=== PATIENT | male | born 1990 | race Two or more races ===

== ENCOUNTER 2021-04-09 10:28 | Inpatient (IN) | payer OTHER ==
[~2021-04-09] VITALS: Ht 175.3 cm; Wt 68.2 kg
[2021-04-09 11:23] LABS: COVID AG,FIA SOURCE NASOPHARYNGEAL
[2021-04-09 11:44] LABS: BASOPHILS % (AUTO) 0.7 % (0.0-2.0); EOSINOPHILS % (AUTO) 3.4 % (1.0-6.0); HEMATOCRIT 44.9 % (41-53); HEMOGLOBIN 14.4 g/dL (13.5-17.5); LYMPHOCYTES # (AUTO) 2.1 K/uL (1.0-4.8); LYMPHOCYTES % (AUTO) 30.1 % (22.0-44.0); MEAN CORPUSCULAR HEMOGLOBIN 29.4 pg (26.0-34.0); MEAN CORPUSCULAR HGB CONC 32.2 G/dL (31.0-37.0); MEAN CORPUSCULAR VOLUME 91 fL (80-100); MONOCYTES # (AUTO) 0.7 K/uL (0.1-1.0); MONOCYTES % (AUTO) 10.2 % (2.0-9.0); NEUTROPHILS # (AUTO) 3.9 K/uL (1.8-7.7); NEUTROPHILS % (AUTO) 55.6 % (40.0-70.0); PLATELET COUNT (AUTO) 209 K/uL (150-450); RED BLOOD CELL COUNT(AUTO) 4.91 MIL/uL (4.50-5.90); RED CELL DISTRIBUTION WIDTH 14.1 % (11.5-14.5)
[2021-04-09 11:56] LABS: ANION GAP 3 mmol/L (8-16); CALCIUM, TOTAL 8.8 mg/dL (8.8-10.5); CARBON DIOXIDE 30 mmol/L (22-29); CHLORIDE 106 mmol/L (98-107); CREATININE 1.03 mg/dL (0.60-1.30); GLOMERULAR FILTR. RATE CALC > 60 mL/min (>60); GLUCOSE,RANDOM 97 mg/dL (70-110); POTASSIUM 3.7 mmol/L (3.5-5.1); SODIUM SERUM 139 mmol/L (136-145); UREA NITROGEN, BLOOD 13 mg/dL (7-18)
[2021-04-09 12:00] LABS: ALANINE AMINOTRANSFERASE 39 U/L (12-78); ALBUMIN 4.2 g/dL (3.4-5.0); ALKALINE PHOSPHATASE 69 U/L (46-116); ASPARTATE AMINOTRANSFERASE 31 U/L (15-37); BILIRUBIN,TOTAL 0.7 mg/dL (0.1-1.0); TOTAL PROTEIN, SERUM 6.7 g/dL (6.4-8.2)
[2021-04-09] MEDS ORDERED: ONDANSETRON HCL 4 MG/2 ML VIAL IVP PRN ×2 (12:30→13:00)
[2021-04-09] MEDS ORDERED: 0.9% SODIUM CHLORIDE 10 ML SYRINGE IVP PRN ×2 (12:30→13:00)
[2021-04-09] MEDS ORDERED: ACETAMINOPHEN 325 MG TABLET PO PRN ×2 (12:30→13:00)
[2021-04-09] MEDS ORDERED: ALBUTEROL SULFATE 2.5 MG/0.5 ML NEB SOLUTION NEB PRN ×2 (13:00→13:15)
[2021-04-09] MEDS ORDERED: DOCUSATE SODIUM 100 MG/10 ML LIQUID UDCUP PO PRN (13:00)
[2021-04-09] MEDS ORDERED: IPRATROPIUM BROMIDE 0.5 MG/2.5 ML NEB SOLUTION NEB PRN (13:00)
[2021-04-09 13:06] LABS: AMPHET/METH SCREEN,URINE NEGATIVE (NEGATIVE); BARBITURATE SCREEN, URINE NEGATIVE (NEGATIVE); BENZODIAZEPINES SCREEN,URINE NEGATIVE (NEGATIVE); CANNABINOID SCREEN,URINE NEGATIVE (NEGATIVE); COCAINE SCREEN,URINE NEGATIVE (NEGATIVE); METHADONE SCREEN, URINE NEGATIVE (NEGATIVE); OPIATE SCREEN,URINE NEGATIVE (NEGATIVE)
[2021-04-09 13:08] LABS: PHENCYCLIDINE SCREEN,URINE NEGATIVE (NEGATIVE)
[2021-04-09] MEDS ORDERED: DOCUSATE SODIUM 100 MG CAPSULE PO PRN (13:15)
[2021-04-09 13:55] VITALS: BP 135/66
[2021-04-09 20:19] VITALS: BP 128/59
[2021-04-10] MEDS ORDERED: HALOPERIDOL LACTATE 5 MG/ML VIAL IM ONE (04:15)
[2021-04-10] MEDS ORDERED: DiphenhydrAMINE HCL 50 MG/ML VIAL IM ONE (04:15)
[2021-04-10 05:49] LABS: BASOPHILS % (AUTO) 0.7 % (0.0-2.0); EOSINOPHILS % (AUTO) 4.5 % (1.0-6.0); HEMATOCRIT 43.7 % (41-53); HEMOGLOBIN 14.4 g/dL (13.5-17.5); LYMPHOCYTES # (AUTO) 2.8 K/uL (1.0-4.8); LYMPHOCYTES % (AUTO) 35.8 % (22.0-44.0); MEAN CORPUSCULAR HEMOGLOBIN 29.8 pg (26.0-34.0); MEAN CORPUSCULAR HGB CONC 33.1 G/dL (31.0-37.0); MEAN CORPUSCULAR VOLUME 90 fL (80-100); MONOCYTES # (AUTO) 0.8 K/uL (0.1-1.0); MONOCYTES % (AUTO) 9.6 % (2.0-9.0); NEUTROPHILS # (AUTO) 3.9 K/uL (1.8-7.7); NEUTROPHILS % (AUTO) 49.4 % (40.0-70.0); PLATELET COUNT (AUTO) 216 K/uL (150-450); RED BLOOD CELL COUNT(AUTO) 4.85 MIL/uL (4.50-5.90); RED CELL DISTRIBUTION WIDTH 13.8 % (11.5-14.5)
[2021-04-10 07:11] LABS: ALANINE AMINOTRANSFERASE 36 U/L (12-78); ALBUMIN 3.5 g/dL (3.4-5.0); ALKALINE PHOSPHATASE 70 U/L (46-116); ANION GAP 6 mmol/L (8-16); ASPARTATE AMINOTRANSFERASE 22 U/L (15-37); BILIRUBIN,TOTAL 0.7 mg/dL (0.1-1.0); CALCIUM, TOTAL 8.7 mg/dL (8.8-10.5); CARBON DIOXIDE 27 mmol/L (22-29); CHLORIDE 103 mmol/L (98-107); CREATININE 1.03 mg/dL (0.60-1.30); GLOMERULAR FILTR. RATE CALC > 60 mL/min (>60); GLUCOSE,RANDOM 104 mg/dL (70-110); POTASSIUM 3.8 mmol/L (3.5-5.1); SODIUM SERUM 136 mmol/L (136-145); TOTAL PROTEIN, SERUM 6.2 g/dL (6.4-8.2); UREA NITROGEN, BLOOD 11 mg/dL (7-18)
[2021-04-10 07:55] VITALS: BP 111/58
[2021-04-10] MEDS ORDERED: HALOPERIDOL 5 MG TABLET PO PRN (11:00)
[2021-04-10] MEDS ORDERED: LORazepam 2 MG TABLET PO PRN (11:00)
[2021-04-10] MEDS: RisperiDONE 2 MG TABLET PO SCH ×2 (11:43→19:59)
[2021-04-10] MEDS: DIVALPROEX SODIUM 500 MG ER TABLET PO SCH ×2 (11:43→19:59)
[2021-04-10] MEDS: TraZODone HCL 100 MG TABLET PO SCH (19:59)
[2021-04-10 20:10] VITALS: BP 124/61
[2021-04-11 07:23] VITALS: BP 108/58
[2021-04-11] MEDS: DIVALPROEX SODIUM 500 MG ER TABLET PO SCH ×2 (08:03→20:12)
[2021-04-11] MEDS: RisperiDONE 2 MG TABLET PO SCH ×2 (08:03→20:12)
[2021-04-11 19:50] VITALS: BP 127/67
[2021-04-11] MEDS: TraZODone HCL 100 MG TABLET PO SCH (20:12)
[2021-04-11 22:41] VITALS: BP 119/60
[2021-04-12 00:43] VITALS: BP 119/60
[2021-04-12 05:06] VITALS: BP 119/58
[2021-04-12 08:07] VITALS: BP 128/76
[2021-04-12] MEDS: RisperiDONE 2 MG TABLET PO SCH ×2 (08:15→20:25)
[2021-04-12] MEDS: DIVALPROEX SODIUM 500 MG ER TABLET PO SCH ×2 (08:15→20:25)
[2021-04-12 20:00] VITALS: BP 114/78
[2021-04-12] MEDS: TraZODone HCL 100 MG TABLET PO SCH (20:25)
[2021-04-13 05:55] VITALS: BP 149/77
[2021-04-13 08:15] VITALS: BP 106/68
[2021-04-13] MEDS: DIVALPROEX SODIUM 500 MG ER TABLET PO SCH ×2 (08:47→20:16)
[2021-04-13] MEDS: RisperiDONE 2 MG TABLET PO SCH ×2 (08:47→20:16)
[2021-04-13] MEDS ORDERED: TRAZ-257 PO (14:18)
[2021-04-13] MEDS ORDERED: DIVA-80 PO (14:18)
[2021-04-13] MEDS ORDERED: RISP2TAB45 PO (14:19)
[2021-04-13 20:05] VITALS: BP 119/58
[2021-04-13] MEDS: TraZODone HCL 100 MG TABLET PO SCH (20:17)
[2021-04-14 05:24] VITALS: BP 107/60
[2021-04-14 07:50] VITALS: BP 102/63
[2021-04-14] MEDS: RisperiDONE 2 MG TABLET PO SCH ×2 (08:33→20:07)
[2021-04-14] MEDS: DIVALPROEX SODIUM 500 MG ER TABLET PO SCH ×2 (08:33→20:06)
[2021-04-14 19:28] VITALS: BP 124/64
[2021-04-14] MEDS: TraZODone HCL 100 MG TABLET PO SCH (20:07)
[2021-04-15 03:53] VITALS: BP 110/54
[2021-04-15] MEDS: RisperiDONE 2 MG TABLET PO SCH (07:59)
[2021-04-15] MEDS: DIVALPROEX SODIUM 500 MG ER TABLET PO SCH (07:59)
[2021-04-15 08:31] VITALS: BP 116/65
== END 2021-04-15 09:06 | DRG 885 ==
LOC: EMS 10:28 → 6S 12:45
PROVIDERS: ADMIT Internal Medicine; ATTEND Internal Medicine
DX: F31.2 Bipolar disorder, current episode manic severe with psychotic features (principal); F23 Brief psychotic disorder; Z20.822 Contact with and (suspected) exposure to COVID-19; Z79.899 Other long term (current) drug therapy; Z91.14 Patient's other noncompliance with medication regimen
CPT/HCPCS: 80053; 80164; 85025; 99285; G0480; J1200; J1630